=== PATIENT | male | born 1960 | race African-American/Black ===

== ENCOUNTER 2020-10-27 06:18 | Emergency (ER) | payer OTHER, SELFPAY ==
[2020-10-27 06:26] VITALS: BP 164/99; PULSE 124; RESP 18; TEMP 36.6; O2SAT 97
--- NOTE | 2020-10-27 07:26 | ED.DENTAL ---
HPI - Dental/Oral General Chief complaint: Dental/Oral Stated complaint: infected tooth Time Seen by Provider: 10/27/20 07:06 Source: patient Mode of arrival: ambulatory Limitations: no limitations History of Present Illness HPI Narrative: Patient is a 60-year-old male complaining of right facial swelling that started yesterday, seeing his dentist was diagnosed with a dental abscess was given amoxicillin but was told if the swelling increased to go to the emergency room. Patient denies any lip or tongue or throat swelling. Patient denies dysphagia. Patient denies fever or chills. Patient denies any chest pain shortness of breath. Related Data Allergies Allergy/AdvReac Type Severity Reaction Status Date / Time No Known Allergies Allergy Verified 10/27/20 06:50 Review of Systems Review of Systems: All systems reviewed & are unremarkable except as noted in HPI and below Constitutional: Constitutional: Denies body ache(s), Denies chills, Denies excessive sweating, Denies fatigue, Denies fever(s), Denies headache(s), Denies lethargy, Denies malaise, Denies weakness and Denies weight loss Eyes: Eyes: Denies blurry vision, Denies change in vision and Denies loss of vision ENT: Denies dizziness, Denies ear discharge, Denies headache(s), Denies lip swelling, Denies epistaxis, Denies nasal congestion, Denies neck pain, Denies throat swelling and Denies tongue swelling Cardiovascular: Cardiovascular: Denies chest pain, Denies chest pain at rest, Denies chest pain with activity, Denies diaphoresis, Denies rapid heart rate, Denies edema, Denies irregular heart rhythm, Denies lightheadedness, Denies palpitations, Denies dyspnea and Denies dyspnea on exertion Respiratory: Respiratory: Denies chest congestion, Denies cough, Denies hemoptysis, Denies dyspnea and Denies dyspnea on exertion Gastrointestinal: Gastrointestinal: Denies abdominal pain, Denies melena, Denies hematochezia, Denies diarrhea, Denies nausea, Denies vomiting and Denies hematemesis Musculoskeletal: Musculoskeletal: Denies abnormal gait, Denies deformity, Denies joint swelling, Denies limited range of motion, Denies neck pain and Denies numbness Neurologic: Denies Abnormal speech present, Denies abnormal gait, Denies confusion, Denies dizziness, Denies headache(s), Denies focal weakness, Denies loss of vision, Denies numbness, Denies Other visual disturbances, Denies Sensory deficit (Neuro) and Denies weakness Psychiatric: Psychiatric: Denies confusion, Denies depression, Denies auditory hallucinations, Denies homicidal ideation and Denies suicidal ideation Endocrine: Endocrine: Denies cold intolerance, Denies excessive sweating, Denies fatigue, Denies heat intolerance and Denies palpitations Hematologic/Lymphatic: Hematologic/Lymphatic: Denies easy bleeding and Denies easy bruising Allergic/Immunologic: Allergic/Immunologic: Denies lip swelling, Denies throat swelling and Denies tongue swelling PMFSH Social History Social History Gender identity (if verbalized by the patient): Male Exam Const: General: cooperative, healthy appearing, comfortable, no acute distress, well developed, alert and awake; No confusion Orientation/consciousness: oriented to person, oriented to place, oriented to time, patient oriented x3 and No confusion Limitations: no limitations HENMT: Head: normocephalic and atraumatic Ears: hearing grossly normal bilaterally, TM normal on the right and TM normal on the left General nose exam: Normal external nose present, Normal nares present and No nasal discharge present Face and sinus: sinus tenderness Mouth: Yes Normal oral and palatal mucosa present, Yes lip normal, Yes tongue normal and Yes oropharynx normal Throat: posterior oropharynx normal, tonsils normal and uvula midline Other: Right facial swelling, erythema, nonfluctuant Eyes: General: appearance normal, both eyes and all related structures Pupils: Equal, round and reactive pupils pres
[2020-10-27] MEDS: CLINDAMYCIN 600 MG/NS 50 ML 600 MG/50 ML PIGGYBACK 100 MG IVPB (07:45)
== END 2020-10-27 08:24 | disposition home or self-care (01) ==
PROVIDERS: Emergency Provider Emergency Medicine; PCP Family Medicine Adolescent Medicine
DX: K04.7 Periapical abscess without sinus (principal)
CPT/HCPCS: 96365; 99284

== ENCOUNTER 2020-12-05 07:51 | Outpatient (CLI) | payer OTHER, SELFPAY ==
[2020-12-05 08:35] LABS: Alanine Aminotransferase 16 U/L (4-50); Albumin Level 4.2 g/dL (3.5-5.1); Alkaline Phosphatase 106 U/L (38-126); Anion Gap 6 mmol/L (8-16); Aspartate Amino Transferase 18 U/L (17-59); Bilirubin,Total 0.6 mg/dL (0.2-1.3); Blood Urea Nitrogen 16 mg/dL (9-20); Calcium 10.1 mg/dL (8.4-10.2); Carbon Dioxide 32 mmol/L (22-30); Chloride 100 mmol/L (98-107); Cholesterol 246 mg/dL (0-200); Estimated Glomerular Filt Rate > 60; Glucose 284 mg/dL (75-110); HDL Direct 46 mg/dL; Potassium 3.6 mmol/L (3.4-5.0); Sodium 138 mmol/L (137-145); Triglycerides 119 mg/dL (<150)
[2020-12-05 08:45] LABS: LDL Cholesterol Direct 168 mg/dL
[2020-12-05 09:04] LABS: Prostate Specific Antigen 1.5 ng/mL (< OR = 4.0)
[2020-12-07 10:57] LABS: Hemoglobin A1C 13.3 % (<5.7)
== END 2020-12-05 07:52 | disposition home or self-care (01) ==
LOC: ANHLAB 07:52
PROVIDERS: PCP Family Medicine Adolescent Medicine; Visit Provider Family Medicine Adolescent Medicine
DX: E11.9 Type 2 diabetes mellitus without complications (principal); I10 Essential (primary) hypertension; Z12.5 Encounter for screening for malignant neoplasm of prostate; Z13.220 Encounter for screening for lipoid disorders
CPT/HCPCS: 36415; 80053; 80061; 83036; 84153; G0103

== ENCOUNTER 2021-06-17 12:59 | Inpatient (IN) | payer OTHER, SELFPAY ==
[2021-06-17] VITALS (13 sets, daily range): BP systolic 105–147; BP diastolic 60–88; PULSE 90–116; RESP 16–25; TEMP 36.1–36.8; O2SAT 94–100; BMI 29.2
--- NOTE | ~2021-06-17 | CT_ITS ---
EXAMINATION: CT abdomen pelvis w con DATE: 06/17/2021 15:00 INDICATION: Lower abdominal pain TECHNIQUE: Computed tomography (CT) of the abdomen and pelvis was performed with 100 mL Omnipaque-350 intravenous contrast. Automated exposure control and iterative reconstruction technique were employe d. The dose-length product was 700.10 mGy-cm. COMPARISON: None FINDINGS: Lung bases are clear. Heart size is normal. No pericardial or pleural effusion. Focal hepatic steatos is at the ligamentum teres. Gallbladder, spleen, pancreas and bilateral adrenal glands are normal. Th ere is an irregular fluid collection situated amongst small bowel loops in the central pelvis and ext ending laterally to abut the tip of the cecum in the expected location of the appendix which is suspi cious for ruptured appendicitis. The 2 largest pockets of the fluid collection measures approximately 4 cm in maximal dimensions. The fluid collection does not yet appear organized with no contiguous we ll-defined enhancing peripheral wall. There are few scattered diverticula along the colon without adj acent inflammatory change to suggest diverticulitis. No bowel obstruction. Bladder is normal. Prostat omegaly. No free intraperineal gas. Small fat-containing umbilical hernia. Mild scattered degenerativ e skeletal changes in the spine and at both hips. IMPRESSION: 1. Irregular fluid collection in the central pelvis which extends to contact the tip of the cecum sug gesting a likely ruptured appendicitis. The fluid collection at this time has not yet organized into a well-defined abscess. Reviewed, dictated and finalized at location A. IMPRESSION: 1. Irregular fluid collection in the central pelvis which extends to contact th e tip of the cecum suggesting a likely ruptured appendicitis. The fluid collect ion at this time has not yet organized into a well-defined abscess.
[2021-06-17 13:49] LABS: Basophils Percent Auto 0.2 % (0.2-1.2); Eosinophils Percent Auto 0.2 % (0-4.4); Hemoglobin 12.7 g/dL (14.0-18.0); Immature Granulocyte Absolute 0.12 K/mm3 (0.00-0.031); Immature Granulocyte Percent A 0.8 % (0-0.5); Lymphocytes Absolute Auto 2.27 K/mm3 (0.9-3.2); Lymphocytes Percent Auto 15.7 % (18.3-44.2); Mean Corpuscular HGB Conc 32.6 g/dl (32-36); Mean Corpuscular Hemoglobin 28.9 pg (26-34); Mean Corpuscular Volume 88.6 fl (80-100); Mean Platelet Volume 9.3 fl (7.4-10.4); Monocytes Absolute Auto 1.3 K/mm3 (0.1-0.6); Monocytes Percent Auto 8.9 % (2.6-8.5); Neutrophils Absolute Auto 10.7 K/mm3 (1.3-6.7); Neutrophils Percent Auto 74.2 % (45.5-73.1); Platelet Count Result 311 k/mm3 (150-375); Red Cell Distribution Width 12.6 % (11.5-14.5); White Blood Count 14.4 K/mm3 (4.5-10.0)
--- NOTE | 2021-06-17 13:53 | ED.ABDPAIN ---
HPI - Abdominal Pain General Chief Complaint: Abdominal Pain Stated Complaint: abd pain Time Seen by Provider: 06/17/21 13:18 Source: patient Mode of arrival: ambulatory Limitations: no limitations History of Present Illness HPI narrative: This is a 61 year old male who presents for evaluation of suprapubic abdominal pain. His pain started 2 days ago. His pain was intermittent and it became constant last night. He was unable to sleep due to his severe pain. HE denies nausea, vomiting, diarrhea, constipation or fever. He also denies dysuria or hematuria. He thinks he had similar pain several months ago when he had a dental infection. He denies history diverticulitis. MD elicited complaint: abdominal pain Quality: cramping Migration to: no migration Exacerbating factors: movement Relieving factors: nothing Related Data Home Medications Medication Instructions Recorded Confirmed glimepiride 4 mg PO DAILY 06/17/21 06/17/21 indapamide 2.5 mg PO DAILY 06/17/21 06/17/21 lisinopril 40 mg PO DAILY 06/17/21 06/17/21 mirabegron [Myrbetriq] 50 mg PO DAILY 06/17/21 06/17/21 pantoprazole 40 mg PO DAILY 06/17/21 06/17/21 pioglitazone 30 mg PO DAILY 06/17/21 06/17/21 Allergies Allergy/AdvReac Type Severity Reaction Status Date / Time No Known Allergies Allergy Verified 06/17/21 17:11 Review of Systems Review of Systems: All systems reviewed & are unremarkable except as noted in HPI and below PMFSH Past Medical History Medical History DM2 (diabetes mellitus, type 2) HTN (hypertension) Surgical History Surgical History No history of previous surgery Family History Family History (Updated 06/17/21 @ 17:55 by Kam Fan DO) Sibling Diabetes mellitus Hypertension Social History Social History (Updated 06/17/21 @ 17:56 by Kam Fan DO) Smoking status: Never smoker Alcohol intake: never Substance use: never Living arrangements: with roommate(s) Gender identity (if verbalized by the patient): Male Exam Const: General: no acute distress and alert Orientation/consciousness: patient oriented x3 Eyes: EOM: EOMs intact bilaterally Resp: Effort & Inspection: normal respiratory effort and no retractions Auscultation: clear to auscultation bilaterally Cardio: Rate: regular rate Rhythm: regular rhythm Heart sounds: no murmurs GI: GI Palp: Yes Soft to palpation, Yes Tenderness to palpation present (GI) (suprapubic with voluntary guarding), Yes Guarding due to palpation present (GI) and No Rigid due to palpation Auscultation: normal bowel sounds Skin: General skin exam: normal color Rashes: no rashes Neuro: General: patient oriented x3, moves all extremities and CN's II-XI intact bilaterally Psych: Mental Status: mental status grossly normal Affect: normal affect Course Reevaluation(s) Reevaluation #1: Patient states he feels better and he has no pain. Dr. Fan states he will take patient to OR Date: 06/17/21 Time: 16:02 Vital Signs Vital signs: Vital Signs Temperature 97 F L 06/17/21 13:01 Pulse Rate 116 H 06/17/21 13:01 Respiratory Rate 17 06/17/21 13:01 Blood Pressure 135/86 06/17/21 13:01 Pulse Oximetry 99 06/17/21 13:01 Temperature 97.7 F 06/17/21 17:20 Pulse Rate 109 H 06/17/21 17:20 Respiratory Rate 16 06/17/21 17:20 Blood Pressure 147/84 H 06/17/21 17:20 Pulse Oximetry 98 06/17/21 17:20 MDM - Abdominal Pain Lab Data Result diagrams: 06/17/21 13:31 06/17/21 13:31 Labs: Lab Results 06/17/21 06/17/21 06/17/21 Range/Units 13:31 13:31 14:05 WBC 14.4 H (4.5-10.0) K/mm3 RBC 4.40 L (4.6-6.20) M/mm3 Hgb 12.7 L (14.0-18.0) g/dL Hct 39.0 L (42.0-52.0) % MCV 88.6 (80-100) fl MCH 28.9 (26-34) pg MCHC 32.6 (32-36) g/dl RDW 12.6 (
[2021-06-17 13:58] LABS: Alanine Aminotransferase 38 U/L (4-50); Albumin Level 4.2 g/dL (3.5-5.1); Alkaline Phosphatase 193 U/L (38-126); Anion Gap 15 mmol/L (8-16); Aspartate Amino Transferase 29 U/L (17-59); Bilirubin,Total 0.7 mg/dL (0.2-1.3); Blood Urea Nitrogen 22 mg/dL (9-20); Calcium 10.2 mg/dL (8.4-10.2); Carbon Dioxide 30 mmol/L (22-30); Chloride 92 mmol/L (98-107); Estimated CRCL calculation 70 ml/min; Estimated Glomerular Filt Rate > 60; Glucose 138 mg/dL (65-110); Lipase 46 U/L (23-300); Potassium 3.4 mmol/L (3.4-5.0); Sodium 137 mmol/L (137-145)
[2021-06-17 14:18] LABS: Add Urine Microscopic? YES; Appearance Urine Clear (Clear); Bilirubin Urine Negative (Negative); Blood Urine 1+ (Negative); Color Urine Yellow (Yellow); Glucose Urine UA Negative (Negative); Ketones Urine 1+ mg/dL (Negative); Leukocyte Esterase Ur Negative LEU/UL (Negative); Mucus Urine Rare /lpf; Nitrate Urine Negative (Negative); Protein Urine 1+ mg/dL (Negative); RBC Urine 0-2 /hpf (0-2); Specific Grav Ur 1.023 (1.001-1.035)
[2021-06-17 14:21] LABS: Lactic Acid Reflex 1.3 mmol/L (0.7-2.1)
[2021-06-17] MEDS: LACTATED RINGERS 1,000 ML 999 ML IV CONT (14:46)
--- NOTE | 2021-06-17 16:57 | PM.IMHP ---
H&P: HPI History of Present Illness Date/Time: 06/17/21 16:57 Chief Complaint: RLQ pain Narrative: Zeb is a 61 yo man who presents to the ED today with abdominal pain that started yesterday. He works in the [employer] department here at [facility]. He states that pain became more severe overnight and was not improving this AM, therefore he came to the ED. He had a more minor similar episode like this 7 months ago, but this resolved on its own. Back then, he thought it was related to recently taking antibiotics for a dental infection. He denies fevers or change in bowel habits. CT in the ED showed evidence of likely acute perforated appendicitis without organized abscess. Pain is currently very minimal after receiving pain meds in the ED. Review of Systems Review of Systems: All systems reviewed & are unremarkable except as noted in HPI and below Eyes: Eyes: Denies change in vision ENT: Denies hearing loss, Denies neck pain and Denies sore throat Cardiovascular: Cardiovascular: Denies chest pain and Denies dyspnea Respiratory: Respiratory: Denies cough, Denies dyspnea and Denies wheezing Gastrointestinal: Gastrointestinal: Reports as per HPI Genitourinary: Genitourinary: Denies hematuria and Denies dysuria Musculoskeletal: Musculoskeletal: Denies arthralgias, Denies joint swelling and Denies neck pain Allergic/Immunologic: Allergic/Immunologic: Denies wheezing PMFSH Past Medical History Medical History DM2 (diabetes mellitus, type 2) HTN (hypertension) Surgical History Surgical History No history of previous surgery Family History Family History (Updated 06/17/21 @ 17:55 by Kam Fan DO) Sibling Diabetes mellitus Hypertension Social History Social History (Updated 06/17/21 @ 17:56 by Kam Fan DO) Smoking status: Never smoker Alcohol intake: never Substance use: never Living arrangements: with roommate(s) Gender identity (if verbalized by the patient): Male Meds Home Medications and Allergies Home Medications Medication Instructions Recorded Confirmed Type glimepiride 4 mg PO DAILY 06/17/21 06/17/21 History indapamide 2.5 mg PO DAILY 06/17/21 06/17/21 History lisinopril 40 mg PO DAILY 06/17/21 06/17/21 History mirabegron [Myrbetriq] 50 mg PO DAILY 06/17/21 06/17/21 History pantoprazole 40 mg PO DAILY 06/17/21 06/17/21 History pioglitazone 30 mg PO DAILY 06/17/21 06/17/21 History Allergies Allergy/AdvReac Type Severity Reaction Status Date / Time No Known Allergies Allergy Verified 06/17/21 17:11 Vital Signs Vital Signs - 24 hr 06/17/21 13:01 Temperature 36.1 C L Pulse Rate 116 H Respiratory Rate 17 Blood Pressure 135/86 Pulse Oximetry 99 Exam Const: General: alert; No acute distress Orientation/consciousness: patient oriented x3 Limitations: no limitations HENMT: Head: normocephalic and atraumatic Ears: hearing grossly normal bilaterally General nose exam: Normal external nose present and Normal nares present Mouth: Yes Normal oral and palatal mucosa present and Yes moist mucous membranes Eyes: General: appearance normal, both eyes and all related structures Conjunctivae: conjunctivae normal Sclera: sclerae normal Pupils: Equal, round and reactive pupils present EOM: EOMs intact bilaterally Neck: Neck: normal visual inspection, full ROM, no lymphadenopathy, supple and no JVD Lymphatic: no lymphadenopathy noted Chest: Chest palpation & inspection: normal inspection of the chest Resp: Effort & Inspection: normal respiratory effort and able to speak in complete sentences Auscultation: clear to auscultation bilaterally Percussion: percussion normal Cardio: Jugular venous distension: no JVD Rate: regular rate Rhythm: regular rhythm Heart sounds: S1 normal heart sound present and S2 normal heart sound present
--- NOTE | 2021-06-17 17:07 | WPDHPUPDATE1 ---
History and Physical Update Update Date/Time: 06/17/21 17:07 History and Physical has been reviewed, including an updated exam of the patient. There are NO changes in the patient's condition. Risks, benefits, and alternatives have been discussed and questions answered. Patient agrees to proceed with procedure.
--- NOTE | 2021-06-17 17:19 | WPDANESEPPF ---
Anes - Initial Pre Proc Eval Procedure: Operation Date: 06/17/21 17:30 Proposed Procedures p Laparoscopic Appendectomy, Possible Open - Kam Fan DO Date/Time: 06/17/21 17:19 Surgeon: Kam Fan DO Pre Op Diagnosis: abd pain Patient Data Age: 61 Gender: M Height: 1.75 m Weight: 90 kg Last Vital Signs Temp 36.1 C L 06/17/21 13:01 Pulse 116 H 06/17/21 13:01 Resp 17 06/17/21 13:01 BP 135/86 06/17/21 13:01 Pulse Ox 99 06/17/21 13:01 Allergies Allergy/AdvReac Type Severity Reaction Status Date / Time No Known Allergies Allergy Verified 06/17/21 17:11 Home Medications Medication Instructions Recorded Confirmed Type glimepiride 4 mg PO DAILY 06/17/21 06/17/21 History indapamide 2.5 mg PO DAILY 06/17/21 06/17/21 History lisinopril 40 mg PO DAILY 06/17/21 06/17/21 History mirabegron [Myrbetriq] 50 mg PO DAILY 06/17/21 06/17/21 History pantoprazole 40 mg PO DAILY 06/17/21 06/17/21 History pioglitazone 30 mg PO DAILY 06/17/21 06/17/21 History Laboratory Tests 06/17/21 06/17/21 06/17/21 13:31 13:31 14:05 WBC 14.4 K/mm3 H K/mm3 (4.5-10.0) RBC 4.40 M/mm3 L M/mm3 (4.6-6.20) Hgb 12.7 g/dL L g/dL (14.0-18.0) Hct 39.0 % L % (42.0-52.0) MCV 88.6 fl fl (80-100) MCH 28.9 pg pg (26-34) MCHC 32.6 g/dl g/dl (32-36) RDW 12.6 % % (11.5-14.5) Plt Count 311 k/mm3 k/mm3 (150-375) MPV 9.3 fl fl (7.4-10.4) Immature Gran % (Auto) 0.8 % H % (0-0.5) Neut % (Auto) 74.2 % H % (45.5-73.1) Lymph % (Auto) 15.7 % L % (18.3-44.2) [place] % (Auto) 8.9 % H % (2.6-8.5) Eos % (Auto) 0.2 % % (0-4.4) Baso % (Auto) 0.2 % % (0.2-1.2) Lymph # (Auto) 2.27 K/mm3 K/mm3 (0.9-3.2) [place] # (Auto) 1.3 K/mm3 H K/mm3 (0.1-0.6) Eos # (Auto) 0.0 K/mm3 K/mm3 (0-0.3) Baso # (Auto) 0.0 K/mm3 K/mm3 (0.0-0.1) Abs Immat Gran (auto) 0.12 K/mm3 H K/mm3 (0.00-0.031) Absolute Neuts (auto) 10.7 K/mm3 H K/mm3 (1.3-6.7) Absolute Nucleated RBC 0.0 K/mm3 K/mm3 (0.0-0.012) Nucleated RBC % 0.0 % % (0.0-0.2) Sodium 137 mmol/L mmol/L (137-145) Potassium 3.4 mmol/L mmol/L (3.4-5.0) Chloride 92 mmol/L L mmol/L (98-107) Carbon Dioxide 30 mmol/L mmol/L (22-30) Anion Gap 15 mmol/L mmol/L (8-16) BUN 22 mg/dL H mg/dL (9-20) Creatinine 1.00 mg/dL mg/dL (0.7-1.3) Estim Creat Clear Calc 70 ml/min ml/min Estimated GFR > 60 (59 - ) Glucose 138 mg/dL H mg/dL (65-110) Lactic Acid Calcium 10.2 mg/dL mg/dL (8.4-10.2) Total Bilirubin 0.7 mg/dL mg/dL (0.2-1.3) AST 29 U/L U/L (17-59) ALT 38 U/L U/L (4-50) Alkaline Phosphatase 193 U/L H U/L (38-126) Total Protein 8.0 g/dL g/dL (6.3-8.2) Albumin 4.2 g/dL g/dL (3.5-5.1) Lipase 46 U/L U/L (23-300) Urine Color Yellow (Yellow) Urine Appearance Clear (Clear) Urine pH 5.0 (5.0-9.0) Ur Specific [place] 1.023 (1.001-1.035) Urine Protein 1+ mg/dL H mg/dL (Negative) Urine Glucose (UA) Negative mg/dL mg/dL (Negative) Urine Ketones 1+ mg/dL H mg/dL (Negative) Ur Blood (Man) 1+ H (Negative) Urine Nitrate Negative (Negative) Urine Bilirubin Negative (Negative) Urine Urobilinogen 2.0 mg/dL H mg/dL (<2.0) Leukocyte Esterase Rfl Negative RHONDA/UL RHONDA/UL (Negative) Urine RBC 0-2 /hpf /hpf (0-2) Urine WBC 4-6 /hpf H /hpf Urine Mucus Rare /lpf /lpf 06/17/21 14:05 WBC RBC Hgb Hct MCV MCH MCHC R
[2021-06-17 17:39] LABS: Glucose Point of Care 129 mg/dl (65-105)
[2021-06-17] MEDS: LACTATED RINGERS 1,000 ML 30 ML IV CONT ×2 (17:49→20:02)
[2021-06-17] MEDS: BUPIVACAINE/EPINEPHRINE 0.5% 30 ML VIAL INFILTRATE (18:28)
--- NOTE | 2021-06-17 20:00 | W.PM.PROC2 ---
Procedure Note - Detailed Date of Procedure 06/17/21 Pre-op Diagnosis Acute perforated appendicitis Post-op Diagnosis same (Acute perforated appendicitis, intraabdominal abscess) Procedure Performed 1. Laparoscopic appendectomy 2. Laparoscopic drainage of intraabdominal abscess Surgeon Kam Fan, DO Anesthesia general and local (0.5% bupivicaine with epinephrine) Indications This is a 61-year-old man who presented to the emergency department today with lower abdominal pain that started yesterday. His pain progressed overnight and he was having more severe pain this morning and therefore presented to the ED. He did have a more minor episode like this about 7 months ago but this resolved without any further treatment or investigation. In the emergency department he was noted to have an elevated white blood count and CT showed evidence of probable perforated appendicitis without definite organized abscess. Discussions were made with the patient about treatment options and decision was made to proceed with urgent laparoscopic appendectomy, possible open. Findings Laparoscopic appendectomy was performed. There was an intra-abdominal abscess located between a loop of the terminal ileum and the perforated appendix. There was also another abscess between the mesoappendix and mesentery of the terminal ileum. The appendix was heavily adherent to the right lower quadrant including adhesions to the sigmoid colon, right pelvic wall, cecum, and terminal ileum. The appendix was barely recognizable as there was extensive amount of friable tissue within the length of what appeared to be the appendix. The appendix also essentially peeled away from the cecum at the base. There was induration of the cecum which I felt would have been difficult to come across with a stapler, therefore I chose to over sew the location of the base of the appendix with 2 0 silk imbricating sutures. The mesoappendix was taken down using an endoGIA 45 mm blue load stapler. The specimen was removed and sent to the lab for pathology. I then also irrigated the abdomen with about a liter of fluid and placed a 19 round Alejandro drain within the right lower quadrant. Carefully inspecting the remainder of the abdomen, there did not appear to be evidence of any small bowel or colon pathology and the cecum appeared healthy and viable. Description of Procedure Procedure as well as risks, benefits, and alternatives were explained to the patient. The patient agreed to proceed. Written consent was obtained and placed in chart prior to procedure. The patient was brought back to surgical suite. He was placed supine on operating table. Time-out was done to confirm the patient and procedure. The patient was then intubated by the Anesthesia Department. his abdomen was prepped and draped in sterile fashion using chlorhexidine prep. A 5 mm incision was made just to the left of the patient's umbilicus and a 5 mm Optiview trocar was advanced through the abdominal layers under direct visualization. Once inside the peritoneal cavity, carbon dioxide insufflation was used to create a pneumoperitoneum. The camera was inserted and the abdomen was inspected. No immediate abnormalities were identified. The patient was then placed in slight Trendelenburg position and rotated to the left. A 5 mm incision was made in the suprapubic region in midline and a 5 mm trocar was inserted under direct visualization. A 12 mm incision was made in the left lower quadrant and a 12 mm trocar was inserted under direct visualization. The right lower quadrant was carefully inspected. The cecum was identified and then this was traced back to the appendix. The terminal ileum was carefully peeled away from what appeared to be the remnant of the ruptured appendix. There was an abscess between the appendix and the ileum which was drained using a suction script worker. There was also another abscess as I dissected deeper between the mesoapp
[2021-06-17 20:18] LABS: Glucose Point of Care 161 mg/dl (65-105)
[2021-06-17] MEDS: ONDANSETRON INJ 4 MG/2 ML VIAL IV PUSH (20:37)
[2021-06-17] MEDS: fentaNYL CITRATE INJ (*CRX) 100 MCG/2 ML VIAL 25 MCG IV PUSH ×2 (20:56→20:59)
--- NOTE | 2021-06-17 21:12 | SUR.PHASEI ---
[id number] sbar faxed floor notified
[2021-06-17] MEDS: MORPHINE SULFATE (*CRX) 2 MG/ML INJ IV PUSH (22:25)
[2021-06-17] MEDS: LACTATED RINGERS 1,000 ML 100 ML IV CONT (22:27)
--- NOTE | 2021-06-17 22:59 | PC.NURSE ---
This patient, Zeb Neville , was received from [[facility] ] on 06/17/21 at 2154. Patient/family oriented to unit policies and routines
[2021-06-18 04:00] VITALS: BP 147/87; PULSE 101; RESP 18; TEMP 35.8; O2SAT 100
--- NOTE | 2021-06-18 04:19 | PC.NURSE ---
called respiratory to obtain IS and provide teaching
[2021-06-18] MEDS: MORPHINE SULFATE (*CRX) 2 MG/ML INJ IV PUSH (04:31)
[2021-06-18 06:05] LABS: Hematocrit 35.7 % (42.0-52.0); Hemoglobin 11.3 g/dL (14.0-18.0); Mean Corpuscular HGB Conc 31.7 g/dl (32-36); Mean Corpuscular Hemoglobin 28.6 pg (26-34); Mean Corpuscular Volume 90.4 fl (80-100); Mean Platelet Volume 9.1 fl (7.4-10.4); Platelet Count Result 278 k/mm3 (150-375); Red Blood Count 3.95 M/mm3 (4.6-6.20); Red Cell Distribution Width 12.7 % (11.5-14.5); White Blood Count 15.5 K/mm3 (4.5-10.0)
[2021-06-18 06:22] LABS: Anion Gap 11 mmol/L (8-16); Blood Urea Nitrogen 19 mg/dL (9-20); Calcium 8.9 mg/dL (8.4-10.2); Carbon Dioxide 29 mmol/L (22-30); Chloride 96 mmol/L (98-107); Estimated CRCL calculation 64 ml/min; Estimated Glomerular Filt Rate > 60; Glucose 161 mg/dL (65-110); Potassium 3.6 mmol/L (3.4-5.0); Sodium 136 mmol/L (137-145)
[2021-06-18 06:50] LABS: Glucose Point of Care 153 mg/dl (65-105)
[2021-06-18 07:36] VITALS: BP 125/79; PULSE 98; RESP 20; TEMP 36.1; O2SAT 99
--- NOTE | 2021-06-18 08:10 | PM.PNGS ---
Progress Note: A&P Assessment and Plan (1) Acute perforated appendicitis: Code(s): K35.32 - Acute appendicitis with perforation and localized peritonitis, without abscess Status: Acute Assessment and Plan: Continue clear liquids today Increase activity Continue Zosyn, monitor DIANE output (2) DM2 (diabetes mellitus, type 2): Qualifiers: Diabetes mellitus senior care insulin use: without senior care use Diabetes mellitus complication status: without complication Qualified Code(s): E11.9 - Type 2 diabetes mellitus without complications Code(s): E11.9 - Type 2 diabetes mellitus without complications Status: Acute Assessment and Plan: On pioglitazone and SSI currently Slowly re-introduce oral meds once diet advanced (3) HTN (hypertension): Qualifiers: Hypertension type: primary hypertension Qualified Code(s): I10 - Essential (primary) hypertension Code(s): I10 - Essential (primary) hypertension Status: Acute Assessment and Plan: BP remaining stable and renal function looks good Will restart Lisinopril Subjective Subjective Date/Time Seen: 06/18/21 08:10 Interval history: Feeling much better already. Pain is 100% better per patient. Tolerating clear liquids. No flatus or BM yet. No fevers. Exam GI: Inspection: incision (intact with glue) and other (DIANE drain with serosanguinous output) Auscultation: Hypoactive bowel sounds present Objective Data Vital Signs Vital Signs: Vital Signs - 24 hr 06/17/21 13:01 06/17/21 17:20 06/17/21 20:10 Temperature 36.1 C L 36.5 C 36.4 C Pulse Rate 116 H 109 H 90 Respiratory Rate 17 16 25 H Blood Pressure 135/86 147/84 H 105/60 Pulse Oximetry 99 98 100 06/17/21 20:25 06/17/21 20:40 06/17/21 20:55 Temperature Pulse Rate 95 100 99 Respiratory Rate 18 20 20 Blood Pressure 122/88 134/83 135/87 Pulse Oximetry 100 100 97 06/17/21 21:10 06/17/21 21:25 06/17/21 21:40 Temperature Pulse Rate 100 99 102 H Respiratory Rate 21 H 24 H 24 H Blood Pressure 136/78 137/80 139/84 Pulse Oximetry 94 96 97 06/17/21 21:57 06/17/21 22:13 06/17/21 22:45 Temperature 36.8 C 36.7 C 36.6 C Pulse Rate 101 H 102 H 103 H Respiratory Rate 18 18 18 Blood Pressure 132/80 138/84 131/73 Pulse Oximetry 97 99 95 06/17/21 23:53 06/18/21 04:00 06/18/21 07:36 Temperature 36.7 C 35.8 C L 36.1 C L Pulse Rate 99 101 H 98 Respiratory Rate 16 18 20 Blood Pressure 131/74 147/87 H 125/79 Pulse Oximetry 96 100 99 Intake/Output Intake/Output: Intake & Output 06/15/21 06/16/21 06/17/21 06/18/21 23:59 23:59 23:59 23:59 Intake Total 2750 490 Output Total 450 315 Balance 2300 175 Meds/Results Medications: Active Medications Generic Name Dose Route Start Last Admin Trade Name Freq PRN Reason Stop Dose Admin Dextrose 12.5 gm 06/17/21 21:46 Dextrose 50% 25 Gm/50 Ml Syringe IV PUSH PRN PRN Hypoglycemia Protocol Enoxaparin Sodium 40 mg 06/18/21 09:00 Enoxaparin 40 Mg/0.4 Ml Syringe SUB-Q DAILY KIMBERLY Glucagon 1 mg 06/17/21 21:46 Glucagon For Inj 1 Mg Vial IM PRN PRN Hypoglycemia Protocol Glucose 15 gm 06/17/21 21:46 Glucose Oral Gel 15 Gm Of Glucse In 37.5 Gm Tube PO PRN PRN Hypoglycemia Protocol Lactated Ringer's 1,000 mls @ 100 mls/hr 06/17/21 21:46 06/17/21 22:27 Lr - Lactated Ringers Iv IV CONT 100 mls/hr .Q10H KIMBERLY Administration Acetaminophen 1,000 mg in 100 mls @ 400 mls/hr 06/18/21 00:00 06/18/21 06:17 Ofirmev 1,000 Mg Ivpb IVPB 06/18/21 23:01 Infused Q6HR KIMBERLY Infusion Piperacillin/Tazobactam/Dextrose 3.375 gm in 50 mls @ 100 mls/hr 06/17/21 22:00 06/18/21 05:10 Zosyn 3.375 Gm/D5w 50ml Pm IVPB Infused Q6H KIMBERLY Infusion Dextrose 1,000 mls @ 100 mls/hr 06/17/21 21:46 Dextrose 5% 1,000 Ml IVPB PRN PRN Hypoglycemia Protocol Insulin Aspart 3 - 6 units 06/18/21
--- NOTE | 2021-06-18 08:17 | WPDANESPN ---
Anes - Prog Note Post-Op Date/Time: 06/18/21 08:17 Cardiovascular status: normal Respiratory status: normal Airway patency: baseline Mental status: baseline Post-Op hydration status: normal Vital Signs: Last Vital Signs Temp 36.1 C L 06/18/21 07:36 Pulse 98 06/18/21 07:36 Resp 20 06/18/21 07:36 BP 125/79 06/18/21 07:36 Pulse Ox 99 06/18/21 07:36 Pain Score (VAS): 0 I/O: Intake & Output 06/17/21 06/18/21 06/18/21 23:59 07:59 15:59 Intake Total 1650 490 Output Total 450 315 Balance 1200 175 Laboratory Tests 06/18/21 05:57 06/18/21 05:57 06/17/21 06/17/21 06/17/21 13:31 13:31 14:05 WBC 14.4 H RBC 4.40 L Hgb 12.7 L Hct 39.0 L MCV 88.6 MCH 28.9 MCHC 32.6 RDW 12.6 Plt Count 311 MPV 9.3 Immature Gran % (Auto) 0.8 H Neut % (Auto) 74.2 H Lymph % (Auto) 15.7 L [place] % (Auto) 8.9 H Eos % (Auto) 0.2 Baso % (Auto) 0.2 Lymph # (Auto) 2.27 [place] # (Auto) 1.3 H Eos # (Auto) 0.0 Baso # (Auto) 0.0 Abs Immat Gran (auto) 0.12 H Absolute Neuts (auto) 10.7 H Absolute Nucleated RBC 0.0 Nucleated RBC % 0.0 Sodium 137 Potassium 3.4 Chloride 92 L Carbon Dioxide 30 Anion Gap 15 BUN 22 H Creatinine 1.00 Estim Creat Clear Calc 70 Estimated GFR > 60 Glucose 138 H POC Capillary Glucose Lactic Acid Calcium 10.2 Total Bilirubin 0.7 AST 29 ALT 38 Alkaline Phosphatase 193 H Total Protein 8.0 Albumin 4.2 Lipase 46 Urine Color Yellow Urine Appearance Clear Urine pH 5.0 Ur Specific Anita 1.023 Urine Protein 1+ H Urine Glucose (UA) Negative Urine Ketones 1+ H Ur Blood (Man) 1+ H Urine Nitrate Negative Urine Bilirubin Negative Urine Urobilinogen 2.0 H Leukocyte Esterase Rfl Negative Urine RBC 0-2 Urine WBC 4-6 H Urine Mucus Rare 06/17/21 06/17/21 06/17/21 14:05 17:36 20:08 WBC RBC Hgb Hct MCV MCH MCHC RDW Plt Count MPV Immature Gran % (Auto) Neut % (Auto) Lymph % (Auto) [place] % (Auto) Eos % (Auto) Baso % (Auto) Lymph # (Auto) [place] # (Auto) Eos # (Auto) Baso # (Auto) Abs Immat Gran (auto) Absolute Neuts (auto) Absolute Nucleated RBC Nucleated RBC % Sodium Potassium Chloride Carbon Dioxide Anion Gap BUN Creatinine Estim Creat Clear Calc Estimated GFR Glucose POC Capillary Glucose 129 H 161 H Lactic Acid 1.3 Calcium Total Bilirubin AST ALT Alkaline Phosphatase Total Protein Albumin Lipase Urine Color Urine Appearance Urine pH Ur Specific Anita Urine Protein Urine Glucose (UA) Urine Ketones Ur Blood (Man) Urine Nitrate Urine Bilirubin Urine Urobilinogen Leukocyte Esterase Rfl Urine RBC Urine WBC Urine Mucus 06/18/21 06/18/21 06/18/21 05:57 05:57 06:48 WBC 15.5 H RBC 3.95 L Hgb 11.3 L Hct 35.7 L MCV 90.4 MCH 28.6 MCHC 31.7 L RDW 12.7 Plt Count 278 MPV 9.1 Immature Gran % (Auto) Neut % (Auto) Lymph % (Auto) [place] % (Auto) Eos % (Auto) Baso % (Auto) Lymph # (Auto) [place] # (Auto) Eos # (Auto) Baso # (Auto) Abs Immat Gran (auto) Absolute Neuts (auto) Absolute Nucleated RBC Nucleated RBC % Sodium 136 L Potassium 3.6 Chloride 96 L Carbon Dioxide 29 Anion Gap 11 BUN 19 Creatinine 1.10 Estim Creat Clear Calc 64 Estimated GFR > 60 Glucose 161 H POC Capillary Glucose 153 H Lactic Acid Calcium 8.9 Total Bilirubin AST ALT Alkaline Phosphatase Total Protein Albumin Lipase Urine Color Urine Appearance Urine pH Ur Specific Anita Urine Protein Urine Glucose (UA) Urine Ketones Ur Blood (Man) Urine Nitrate Urine Bilirubin
[2021-06-18] MEDS: PIOGLITAZONE HCL 30 MG TABLET PO (08:53)
[2021-06-18] MEDS: lisinopriL 20 MG TABLET 40 MG PO (08:53)
[2021-06-18] MEDS: PANTOPRAZOLE 40 MG TABLET PO (08:53)
[2021-06-18] MEDS: ENOXAPARIN 40 MG/0.4 ML SYRINGE SUB-Q (08:53)
[2021-06-18] MEDS: LACTATED RINGERS 1,000 ML 100 ML IV CONT ×2 (08:57→21:59)
--- NOTE | 2021-06-18 10:37 | PC.NURSE ---
On 06/18/21, the student, [Erika Acevedo], provided care and completed [facility] documentation on this patient. I have reviewed the student's documentation and agree with the findings.
[2021-06-18 11:37] LABS: Glucose Point of Care 179 mg/dl (65-105)
[2021-06-18 12:00] VITALS: BP 121/74; PULSE 86; RESP 18; TEMP 35.7; O2SAT 99
[2021-06-18 16:00] VITALS: BP 139/75; PULSE 98; RESP 18; TEMP 36.2; O2SAT 97
[2021-06-18 17:00] LABS: Glucose Point of Care 86 mg/dl (65-105)
[2021-06-18 19:56] VITALS: BP 132/73; PULSE 95; RESP 18; TEMP 36; O2SAT 96
[2021-06-18 21:24] LABS: Glucose Point of Care 121 mg/dl (65-105)
[2021-06-19] MEDS: MORPHINE SULFATE (*CRX) 4 MG/ML INJ IV PUSH (01:57)
[2021-06-19 05:18] LABS: Hematocrit 34.6 % (42.0-52.0); Hemoglobin 11.1 g/dL (14.0-18.0); Mean Corpuscular HGB Conc 32.1 g/dl (32-36); Mean Corpuscular Hemoglobin 28.8 pg (26-34); Mean Corpuscular Volume 89.6 fl (80-100); Mean Platelet Volume 8.9 fl (7.4-10.4); Platelet Count Result 303 k/mm3 (150-375); Red Blood Count 3.86 M/mm3 (4.6-6.20); White Blood Count 12.5 K/mm3 (4.5-10.0)
[2021-06-19 05:29] VITALS: BP 131/81; PULSE 102; RESP 18; TEMP 35.9; O2SAT 97
[2021-06-19 05:39] LABS: Anion Gap 8 mmol/L (8-16); Blood Urea Nitrogen 13 mg/dL (9-20); Calcium 8.6 mg/dL (8.4-10.2); Carbon Dioxide 31 mmol/L (22-30); Chloride 97 mmol/L (98-107); Estimated CRCL calculation 78 ml/min; Estimated Glomerular Filt Rate > 60; Glucose 130 mg/dL (65-110); Potassium 3.4 mmol/L (3.4-5.0); Sodium 136 mmol/L (137-145)
[2021-06-19] MEDS: LACTATED RINGERS 1,000 ML 50 ML IV CONT (09:10)
[2021-06-19] MEDS: MORPHINE SULFATE (*CRX) 2 MG/ML INJ IV PUSH (09:11)
--- NOTE | 2021-06-19 09:11 | PM.PNGS ---
Progress Note: A&P Assessment and Plan (1) Acute perforated appendicitis: Onset Date: ~06/17/21 Code(s): K35.32 - Acute appendicitis with perforation and localized peritonitis, without abscess Status: Acute Assessment and Plan: this was the main reason for the patient's admission. His appendix was disintegrated in the right lower quadrant with the surrounding abscess. There is a drain in this area now. He seems to be recovering well on IV antibiotics. Will advance his diet. Leave drain in place. Encouraged increased activity and incentive spirometry. (2) HTN (hypertension): Onset Date: Unknown Qualifiers: Hypertension type: primary hypertension Qualified Code(s): I10 - Essential (primary) hypertension Code(s): I10 - Essential (primary) hypertension Status: Acute Assessment and Plan: Placing patient back on usual medications is okay with surgery. (back on lisinpril). (3) DM2 (diabetes mellitus, type 2): Qualifiers: Diabetes mellitus complication status: without complication Diabetes mellitus superintendent container terminal insulin use: without superintendent container terminal use Qualified Code(s): E11.9 - Type 2 diabetes mellitus without complications Code(s): E11.9 - Type 2 diabetes mellitus without complications Status: Acute Assessment and Plan: We could resume oral antihyperglycemics. Done 06/19). Additional Plan Continue IV antibiotics Begin advancing diet Encourage activity. Subjective Subjective Date/Time Seen: 06/19/21 09:11 Post Op day: 2 ( sitting up in chair, improved) Patient reports: feels better, still having pain, flatus and no bowel movement Interval history: patient states he is feeling okay. He has been walking in the hallways. He is using his incentive spirometer. Denies nausea and is tolerating his clear liquid diet. Review of Systems Constitutional: Constitutional: Reports no additional constitutional complaints ENT: Reports other (Mucous Membranes moist.) Cardiovascular: Cardiovascular: Denies dyspnea Respiratory: Respiratory: Denies pain on inspiration and Denies dyspnea Musculoskeletal: Musculoskeletal: Reports other (No calf swelling or edema) Integumentary/Breasts: Skin/Breast: Reports system reviewed and no additional complaints, except as docu Exam Const: General: cooperative, no acute distress, alert and awake Orientation/consciousness: patient oriented x3 HENMT: Mouth: Yes moist mucous membranes Neck: Neck: normal visual inspection Chest: Chest palpation & inspection: normal inspection of the chest Resp: Effort & Inspection: normal respiratory effort Auscultation: clear to auscultation bilaterally Cardio: Jugular venous distension: no JVD Rate: regular rate Rhythm: regular rhythm GI: Inspection: distended GI Palp: Yes abdominal tenderness ( mild at incision sites), Yes Soft to palpation and No Hernia present Auscultation: normal bowel sounds Rectal Exam: deferred Other: Drain exiting suprapubic incision. No surrounding significant drainage. DIANE contains serosanguineous drainage that is not feculent. 175 cc out DIANE drain yesterday. Neuro: General: patient oriented x3 and moves all extremities Speech: normal speech Extrem: General: normal exam except as noted Psych: Mental Status: mental status grossly normal Speech and movement: Normal speech and movement present Affect: normal affect Thought content: Yes Normal thought content present Objective Data Vital Signs Vital Signs: Vital Signs - 24 hr 06/18/21 12:00 06/18/21 16:00 06/18/21 19:56 Temperature 35.7 C L 36.2 C L 36.0 C L Pulse Rate 86 98 95 Respiratory Rate 18 18 18 Blood Pressure 121/74 139/75 132/73 Pulse Oximetry 99 97 96 06/19/21 05:29 Temperature 35.9 C L Pulse Rate 102 H Respiratory Rate 18 Blood Pressure 131/81 Pulse Oximetry 97 Intake/Output Intake/Output: Intake & Output 06/16/21 06/17/21 06/18/21 06/19/21
[2021-06-19] MEDS: lisinopriL 20 MG TABLET 40 MG PO (09:15)
[2021-06-19] MEDS: PIOGLITAZONE HCL 30 MG TABLET PO (09:15)
[2021-06-19] MEDS: PANTOPRAZOLE 40 MG TABLET PO (09:15)
[2021-06-19] MEDS: ENOXAPARIN 40 MG/0.4 ML SYRINGE SUB-Q (09:15)
[2021-06-19 11:19] LABS: Glucose Point of Care 147 mg/dl (65-105)
[2021-06-19 11:50] LABS: Glucose Point of Care 147 mg/dl (65-105)
[2021-06-19 14:00] VITALS: BP 126/78; PULSE 107; RESP 20; TEMP 37.3; O2SAT 97
[2021-06-19 15:20] VITALS: TEMP 37.7
[2021-06-19 15:22] VITALS: TEMP 37.8
[2021-06-19] MEDS: ACETAMINOPHEN 500 MG TABLET 1000 MG PO (15:22)
[2021-06-19 16:20] VITALS: TEMP 37.6
[2021-06-19 17:49] LABS: Glucose Point of Care 156 mg/dl (65-105)
[2021-06-19 19:42] VITALS: BP 136/81; PULSE 108; RESP 18; TEMP 36; O2SAT 98
[2021-06-19 22:53] LABS: Glucose Point of Care 165 mg/dl (65-105)
[2021-06-20 04:50] VITALS: BP 154/90; PULSE 103; RESP 18; TEMP 37.6; O2SAT 99
[2021-06-20 08:01] LABS: Glucose Point of Care 137 mg/dl (65-105)
[2021-06-20] MEDS: PANTOPRAZOLE 40 MG TABLET PO (08:58)
[2021-06-20] MEDS: ENOXAPARIN 40 MG/0.4 ML SYRINGE SUB-Q (08:58)
[2021-06-20] MEDS: PIOGLITAZONE HCL 30 MG TABLET PO (08:58)
[2021-06-20] MEDS: lisinopriL 20 MG TABLET 40 MG PO (08:58)
[2021-06-20] MEDS: GLIMEPIRIDE 2 MG TABLET 4 MG PO (08:58)
[2021-06-20] MEDS: polyethylene glycoL 3350 17 GM POWD.PACK PO (09:37)
[2021-06-20 10:23] VITALS: TEMP 37.3
--- NOTE | 2021-06-20 10:28 | PM.DS ---
DS: Admitting Diagnosis Admitting Diagnosis acute appendicitis with perforation and localized peritonitis. DS: Discharge Diagnosis Discharge Diagnosis (1) Acute perforated appendicitis: Onset Date: ~06/17/21 Code(s): K35.32 - Acute appendicitis with perforation and localized peritonitis, without abscess Status: Acute Assessment and Plan: This was the main reason for the patient's admission. By a original CT there was not an organized abscess that could be drained by CT guidance. Therefore Dr. dwight jean-baptiste chose to proceed to surgical intervention and found a disintegrated appendix in the right lower quadrant was walled off within a phlegmon. The area was cleansed with appendix removed piecemeal and a couple of sutures placed to close the Penta seal stump. A drain was left in place. Patient had an ileus for a couple days postop but is now improving. Minimal serosanguineous drainage over the last 24 hours from the DIANE drain so that was removed today. Patient to be discharged on only Tylenol for pain. He will continue with 10 days of oral antibiotics using Augmentin and Flagyl. Prescriptions were sent to his pharmacy for this. (2) HTN (hypertension): Onset Date: Unknown Qualifiers: Hypertension type: primary hypertension Qualified Code(s): I10 - Essential (primary) hypertension Code(s): I10 - Essential (primary) hypertension Status: Acute Assessment and Plan: Patient's home meds were resumed and he had no significant problems with blood pressure during his postoperative stay. 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 Most of his blood sugars were between 102 100 and as he advanced his diet his oral meds were renewed in he continued to have reasonable blood sugars. DS: Summary Hospital Course Reason for hospitalization: Perforated appendicitis Hospital Course: The patient had an uneventful hospital course. It is described below. He is being discharged on 06/20/2021 with instructions for home care and follow-up in the office. This was the main reason for the patient's admission. By a original CT there was not an organized abscess that could be drained by CT guidance. Therefore Dr. dwight jean-baptiste chose to proceed to surgical intervention and found a disintegrated appendix in the right lower quadrant was walled off within a phlegmon. The area was cleansed with appendix removed piecemeal and a couple of sutures placed to close the Penta seal stump. A drain was left in place. Patient had an ileus for a couple days postop but is now improving. Minimal serosanguineous drainage over the last 24 hours from the DIANE drain so that was removed today. Patient to be discharged on only Tylenol for pain. He will continue with 10 days of oral antibiotics using Augmentin and Flagyl. Prescriptions were sent to his pharmacy for this. Status at Discharge Functional status at discharge: independent ambulation Overall status at discharge: patient is back to baseline Time Spent with Patient Time attestation: Total time spent providing and/or coordinating discharge services: Time spent: Less than 30 minutes Specific discharge activities: Soft diet initially at home with low-fiber and then advance as tolerated to his usual diabetic diet Resume all home meds Take prescribed antibiotics until they are gone. Follow-up with Dr. Fan in approximately 10 days in the office. Patient to call if starts running a fever consistently greater than 100 F or has increasing abdominal pain in the next few days. Exam Const: Ge
[2021-06-20] MEDS: ACETAMINOPHEN 500 MG TABLET 1000 MG PO (10:37)
[2021-06-20 11:26] LABS: Glucose Point of Care 182 mg/dl (65-105)
== END 2021-06-20 12:40 | disposition home or self-care (01) | DRG 340 ==
LOC: ANHED 16:04 → ANHSURGERY 16:50 → ANH3MED 06-18 05:07
PROVIDERS: Emergency Medicine; Admitting Provider Surgery; Emergency Provider General Practice; PCP Family Medicine Adolescent Medicine; Visit Provider Nurse Practitioner
PROC: 0DTJ4ZZ Resection of Appendix, Percutaneous Endoscopic Approach (ICD-10-PCS; CPT 44970; principal; 2021-06-17 17:30)
DX: K35.33 Acute appendicitis with perforation, localized peritonitis, and gangrene, with abscess (principal); E11.9 Type 2 diabetes mellitus without complications; I10 Essential (primary) hypertension
CPT/HCPCS: 36415; 74177; 80048; 80053; 81001; 82948; 83605; 83690; 85025; 85027; 88304; 96361; 96365; 96375; 99285; A9270; J0131; J0330; J1100; J1650; J2270; J2370; J2405; J2543; J2704; J3010; J7120; Q9967

== ENCOUNTER 2021-12-15 06:50 | Outpatient (CLI) | payer OTHER, SELFPAY ==
--- NOTE | ~2021-12-15 | XR_ITS ---
EXAMINATION: XR chest 2V EXAM DATE: 12/15/2021 07:46 INDICATION: Fatigue. Annual checkup. TECHNIQUE: Frontal and lateral projections of the chest obtained and reviewed. Comparison is made to prior examination from 12/09/2015. FINDINGS: The lungs are clear. There are no pleural effusions. The cardiomediastinal silhouette is within normal limits. There is no pneumothorax suspected. The bones and soft tissues are unremarkab le. IMPRESSION: No acute cardiopulmonary findings. Reviewed, dictated and finalized at location A. [employer]
[2021-12-15 07:57] LABS: Hematocrit 43.8 % (42.0-52.0); Hemoglobin 13.9 g/dL (14.0-18.0); Immature Platelet Fraction Pct 11.6 % (0.9-11.2); Mean Corpuscular HGB Conc 31.7 g/dl (32-36); Mean Corpuscular Hemoglobin 29.7 pg (26-34); Mean Corpuscular Volume 93.6 fl (80-100); Mean Platelet Volume 10.1 fl (7.4-10.4); Platelet Count Result 143 k/mm3 (150-375); Red Blood Count 4.68 M/mm3 (4.6-6.20); Red Cell Distribution Width 13.3 % (11.5-14.5); White Blood Count 7.4 K/mm3 (4.5-10.0)
[2021-12-15 08:34] LABS: Hemoglobin A1C 7.6 % (<5.7)
[2021-12-15 09:53] LABS: Alanine Aminotransferase 32 U/L (4-50); Albumin Level 4.4 g/dL (3.5-5.1); Alkaline Phosphatase 79 U/L (38-126); Anion Gap 5 mmol/L (8-16); Aspartate Amino Transferase 32 U/L (17-59); Bilirubin,Total 0.4 mg/dL (0.2-1.3); Blood Urea Nitrogen 25 mg/dL (9-20); Calcium 9.4 mg/dL (8.4-10.2); Carbon Dioxide 34 mmol/L (22-30); Chloride 98 mmol/L (98-107); Cholesterol 245 mg/dL (0-200); Estimated Glomerular Filt Rate > 60; Glucose 165 mg/dL (65-110); HDL Direct 58 mg/dL; Potassium 3.7 mmol/L (3.4-5.0); Sodium 137 mmol/L (137-145); Triglycerides 100 mg/dL (<150)
[2021-12-15 10:05] LABS: LDL Cholesterol Direct 145 mg/dL
[2021-12-15 10:25] LABS: Prostate Specific Antigen 1.4 ng/mL (< OR = 4.0); Thyroid Stimulating Hormone 0.922 uIU/mL (0.465-4.680)
== END 2021-12-15 06:51 | disposition home or self-care (01) ==
PROVIDERS: PCP Family Medicine Adolescent Medicine; Visit Provider Family Medicine Adolescent Medicine
DX: Z12.5 Encounter for screening for malignant neoplasm of prostate (principal); I10 Essential (primary) hypertension; E11.9 Type 2 diabetes mellitus without complications; E78.00 Pure hypercholesterolemia, unspecified; R53.83 Other fatigue
CPT/HCPCS: 36415; 71046; 80053; 80061; 83036; 84153; 84443; 85027; 85055; G0103

== ENCOUNTER 2022-05-11 06:40 | Outpatient (CLI) | payer OTHER, SELFPAY ==
[2022-05-11 07:51] LABS: Alanine Aminotransferase 36 U/L (6-50); Cholesterol 170 mg/dL (0-200); HDL Direct 59 mg/dL; Triglycerides 82 mg/dL (<150)
[2022-05-11 08:02] LABS: LDL Cholesterol Direct 77 mg/dL
== END 2022-05-11 06:41 | disposition home or self-care (01) ==
PROVIDERS: PCP Family Medicine Adolescent Medicine; Visit Provider Family Medicine Adolescent Medicine
DX: E78.5 Hyperlipidemia, unspecified (principal); Z51.81 Encounter for therapeutic drug level monitoring; Z79.899 Other long term (current) drug therapy
CPT/HCPCS: 36415; 80061; 84460

== ENCOUNTER 2022-05-31 00:06 | Day surgery (SDC) | payer OTHER, SELFPAY ==
[2022-05-11 12:02] VITALS: BMI 31.8
--- NOTE | 2022-05-30 13:09 | P.PNAN_ITS ---
Anes - Initial Pre Proc Eval Procedure: Operation Date: 05/31/22 08:00 Proposed Procedures p Screening Colonoscopy - Faraz Castro MD Date/Time: 05/30/22 13:09 Surgeon: Faraz Castro MD Pre Op Diagnosis: neoplasm screening Patient Data Age: 62 Gender: M Height: 1.75 m Weight: 98 kg Allergies Allergy/AdvReac Type Severity Reaction Status Date / Time No Known Allergies Allergy Verified 05/31/22 06:44 Home Medications Medication Instructions Recorded Confirmed Type lisinopril 40 mg tablet 40 mg PO DAILY 06/17/21 05/11/22 History pioglitazone 30 mg tablet 30 mg PO DAILY #30 tabs 12/08/21 05/11/22 Rx atorvastatin 40 mg tablet 40 mg PO DAILY #90 tabs 12/15/21 05/11/22 Rx mirabegron 50 mg tablet,extended 50 mg PO DAILY #30 tabs 01/11/22 05/11/22 Rx release 24 hr (Myrbetriq) glimepiride 4 mg tablet 4 mg PO DAILY #90 tabs 03/11/22 05/11/22 Rx amlodipine 5 mg tablet 5 mg PO DAILY #90 tabs 03/23/22 05/11/22 Rx sodium sul 1.479 gram-potas ch See Rx Instructions PO PER PKG DIR 04/25/22 05/31/22 Rx 0.188 gram-magnes sul 0.225 gram #24 tabs tablet (Sutab) indapamide 2.5 mg tablet 2.5 mg PO DAILY #30 tabs 05/09/22 05/11/22 Rx Patient hx anesthesia problems: none Family hx anesthesia problems: none Results Review: All pre-operative results and documents have been reviewed as part of the pre- operative evaluation. [facility] Past Medical History Medical History (Updated 05/30/22 @ 13:10 by El Wood MD) Acute perforated appendicitis (~06/17/21) DM2 (diabetes mellitus, type 2) HTN (hypertension) (Unknown) Pure hypercholesterolemia, unspecified Surgical History Surgical History History of laparoscopic appendectomy 05/2021 Laparoscopic appendectomy 2. Laparoscopic drainage of intraabdominal abscess Surgeon Family History Family History Sibling Diabetes mellitus Hypertension Father Acute myocardial infarction Heart disease Mother Diabetes mellitus Social History Social History (Updated 03/23/22 @ 08:22 by Qiana Smith MA) Smoking status: Never smoker Second hand tobacco smoke exposure: No Alcohol intake: current Alcohol use details: 1 drink monthly Substance use: never Substance use type: does not use Living arrangements: with roommate(s) Gender identity (if verbalized by the patient): Male Spiritual care concerns: No Agree to blood products: Yes Anes - Eval Final PreProcedure Day of Procedure 05/30/22 13:09 Patient weight: obese Heart: regular rate and rhythm Lungs: clear to auscultation Airway: Mallampati scale class II Neurological: alert and oriented Last oral intake: >/= 8 hours ASA classification: III Emergent: yes Anesthetic plan: proceed Anesthesia type and monitoring: general GIVS and standard monitoring Results Review: All pre-operative results and documents have been reviewed as part of the pre-operative evaluation. Informed Consent: The patient's anesthetic plan and its attendant risks and benefits were discussed with the patient/family/POA. Questions were solicited and answers provided to the satisfaction of the patient/family/POA.
[2022-05-31 07:05] LABS: Glucose Point of Care 199 mg/dl (65-105)
[2022-05-31] MEDS: LACTATED RINGERS 1,000 ML 150 ML IV CONT (07:08)
--- NOTE | 2022-05-31 07:49 | PM.IMHP ---
H&P: HPI History of Present Illness Date/Time: 05/31/22 07:49 Chief Complaint: Neoplasia screening. Narrative: This is a 62-year-old white male patient presents for screening colonoscopy. His current weight appetite bowel movements are normal. Patient denies abdominal pain. He has had no bleeding. Family history is noncontributory. Patient did have surgery within the last year for ruptured appendicitis. He currently is doing well with no abdominal pain and normal bowel habits. Neoplasia screening will be performed today. Review of Systems Review of Systems: Review of systems noncontributory. [facility] Past Medical History Medical History (Updated 05/31/22 @ 07:50 by Faraz Castro MD) Acute perforated appendicitis (~06/17/21) DM2 (diabetes mellitus, type 2) HTN (hypertension) (Unknown) Pure hypercholesterolemia, unspecified Surgical History Surgical History History of laparoscopic appendectomy 05/2021 Laparoscopic appendectomy 2. Laparoscopic drainage of intraabdominal abscess Surgeon Family History Family History Sibling Diabetes mellitus Hypertension Father Acute myocardial infarction Heart disease Mother Diabetes mellitus Social History Social History (Updated 03/23/22 @ 08:22 by Qiana Smith MA) Smoking status: Never smoker Second hand tobacco smoke exposure: No Alcohol intake: current Alcohol use details: 1 drink monthly Substance use: never Substance use type: does not use Living arrangements: with roommate(s) Gender identity (if verbalized by the patient): Male Spiritual care concerns: No Agree to blood products: Yes Meds Home Medications and Allergies Home Medications Medication Instructions Recorded Confirmed Type lisinopril 40 mg tablet 40 mg PO DAILY 06/17/21 05/11/22 History pioglitazone 30 mg tablet 30 mg PO DAILY #30 tabs 12/08/21 05/11/22 Rx atorvastatin 40 mg tablet 40 mg PO DAILY #90 tabs 12/15/21 05/11/22 Rx mirabegron 50 mg tablet,extended 50 mg PO DAILY #30 tabs 01/11/22 05/11/22 Rx release 24 hr (Myrbetriq) glimepiride 4 mg tablet 4 mg PO DAILY #90 tabs 03/11/22 05/11/22 Rx amlodipine 5 mg tablet 5 mg PO DAILY #90 tabs 03/23/22 05/11/22 Rx sodium sul 1.479 gram-potas ch See Rx Instructions PO PER PKG DIR 04/25/22 05/31/22 Rx 0.188 gram-magnes sul 0.225 gram #24 tabs tablet (Sutab) indapamide 2.5 mg tablet 2.5 mg PO DAILY #30 tabs 05/09/22 05/11/22 Rx Allergies Allergy/AdvReac Type Severity Reaction Status Date / Time No Known Allergies Allergy Verified 05/31/22 06:44 Exam Narrative: Physical exam reveals patient to be alert. Vital signs stable. HEENT exam is unremarkable. Patient is anicteric. Lungs are clear to auscultation and percussion. Heart is without murmur or extra sounds. Abdomen bowel sounds present soft nontender with no hepatosplenomegaly. Digital external rectal exam is normal. Assessment and Plan Assessment and plan (1) Encounter for screening colonoscopy: Code(s): Z12.11 - Encounter for screening for malignant neoplasm of colon Status: Acute Assessment and Plan: Patient presents today for screening colonoscopy. Appears to be at average risk for colon polyps. Further recommendations will be given after endoscopy.
[2022-05-31 08:09] VITALS: BP 101/63; PULSE 90; RESP 20; O2SAT 96
[2022-05-31 08:19] VITALS: BP 125/88; PULSE 89; RESP 20; O2SAT 100
[2022-05-31 08:29] VITALS: BP 118/92; PULSE 86; RESP 20; O2SAT 100
== END 2022-05-31 08:52 | disposition home or self-care (01) ==
PROVIDERS: PCP Family Medicine Adolescent Medicine; Visit Provider Internal Medicine Gastroenterology
PROC: 0DJD8ZZ Inspection of Lower Intestinal Tract, Via Natural or Artificial Opening Endoscopic (ICD-10-PCS; CPT 45378; principal; 2022-05-31 08:00)
DX: Z12.11 Encounter for screening for malignant neoplasm of colon (principal); K64.8 Other hemorrhoids; K57.30 Diverticulosis of large intestine without perforation or abscess without bleeding; I10 Essential (primary) hypertension; E11.9 Type 2 diabetes mellitus without complications; E78.00 Pure hypercholesterolemia, unspecified; Z79.84 Long term (current) use of oral hypoglycemic drugs; E66.9 Obesity, unspecified; Z68.32 Body mass index [BMI] 32.0-32.9, adult
CPT/HCPCS: 45378; 82948; J2704; J7120

== ENCOUNTER 2023-03-01 06:36 | Outpatient (CLI) | payer OTHER, SELFPAY ==
[2023-03-01 07:37] LABS: Hematocrit 43.6 % (42.0-52.0); Hemoglobin 14.1 g/dL (14.0-18.0); Immature Platelet Fraction Pct 11.6 % (0.9-11.2); Mean Corpuscular HGB Conc 32.3 g/dl (32-36); Mean Corpuscular Hemoglobin 30.3 pg (26-34); Mean Corpuscular Volume 93.6 fl (80-100); Mean Platelet Volume 10.9 fl (7.4-10.4); Platelet Count Result 155 k/mm3 (150-375); Red Blood Count 4.66 M/mm3 (4.6-6.20); Red Cell Distribution Width 13.6 % (11.5-14.5); White Blood Count 6.8 K/mm3 (4.5-10.0)
[2023-03-01 07:56] LABS: Alanine Aminotransferase 41 U/L (6-50); Albumin Level 4.3 g/dL (3.5-5.1); Alkaline Phosphatase 92 U/L (38-126); Anion Gap 3 mmol/L (8-16); Aspartate Amino Transferase 26 U/L (17-59); Bilirubin,Total 0.6 mg/dL (0.2-1.3); Blood Urea Nitrogen 17 mg/dL (9-20); Calcium 9.1 mg/dL (8.4-10.2); Carbon Dioxide 36 mmol/L (22-30); Chloride 98 mmol/L (98-107); Cholesterol 139 mg/dL (0-200); Estimated Glomerular Filt Rate > 60; Glucose 213 mg/dL (65-110); HDL Direct 48 mg/dL; Potassium 3.9 mmol/L (3.4-5.0); Sodium 137 mmol/L (137-145); Triglycerides 82 mg/dL (<150)
[2023-03-01 08:07] LABS: LDL Cholesterol Direct 66 mg/dL
[2023-03-01 08:19] LABS: MALB Creatinine Ratio 28.6 mg/g (0-30); Microalbumin Urine Random 51.2 mg/L (0-16.7)
[2023-03-01 09:18] LABS: Hemoglobin A1C 10.4 % (<5.7)
[2023-03-01 09:27] LABS: Prostate Specific Antigen 1.9 ng/mL (< OR = 4.0)
[2023-03-05 11:10] LABS: Testosterone Total 214 ng/dL (250-1100)
== END 2023-03-01 06:37 | disposition home or self-care (01) ==
LOC: ANHLAB 06:38
PROVIDERS: PCP Family Medicine Adolescent Medicine; Visit Provider Family Medicine Adolescent Medicine
DX: Z12.5 Encounter for screening for malignant neoplasm of prostate (principal); R53.83 Other fatigue; E78.00 Pure hypercholesterolemia, unspecified; E11.9 Type 2 diabetes mellitus without complications; I10 Essential (primary) hypertension
CPT/HCPCS: 36415; 80053; 80061; 82043; 83036; 84153; 84403; 84443; 85027; 85055; G0103

== ENCOUNTER 2023-03-07 06:34 | Outpatient (CLI) | payer OTHER, SELFPAY ==
[2023-03-11 14:53] LABS: Testosterone Free 27.5 pg/mL (35.0-155.0); Testosterone Total 153 ng/dL (250-1100)
== END 2023-03-07 06:35 | disposition home or self-care (01) ==
PROVIDERS: PCP Family Medicine Adolescent Medicine; Visit Provider Family Medicine Adolescent Medicine
DX: E29.1 Testicular hypofunction (principal)
CPT/HCPCS: 36415; 84402; 84403

== ENCOUNTER 2023-07-03 14:54 | Outpatient (CLI) | payer OTHER, SELFPAY ==
[2023-07-03 15:45] LABS: Anion Gap 8 mmol/L (8-16); Blood Urea Nitrogen 25 mg/dL (9-20); Calcium 9.1 mg/dL (8.4-10.2); Carbon Dioxide 25 mmol/L (22-30); Chloride 105 mmol/L (98-107); Estimated Glomerular Filt Rate > 60; Glucose 105 mg/dL (65-110); Potassium 4.1 mmol/L (3.4-5.0); Sodium 138 mmol/L (137-145)
[2023-07-04 00:08] LABS: Hemoglobin A1C 7.5 % (<5.7)
[2023-07-06 09:50] LABS: Testosterone Total 484 ng/dL (250-1100)
== END 2023-07-03 14:55 | disposition home or self-care (01) ==
LOC: ANHLAB 14:56
PROVIDERS: PCP Family Medicine Adolescent Medicine; Visit Provider Family Medicine Adolescent Medicine
DX: E11.9 Type 2 diabetes mellitus without complications (principal); I10 Essential (primary) hypertension; E78.00 Pure hypercholesterolemia, unspecified; R53.83 Other fatigue; Z12.5 Encounter for screening for malignant neoplasm of prostate
CPT/HCPCS: 36415; 80048; 83036; 84403

== ENCOUNTER 2023-12-14 10:52 | Outpatient (CLI) | payer OTHER, SELFPAY ==
--- NOTE | ~2023-12-14 | XR_ITS ---
Clinical Indication: Chest pain PA and lateral views of the chest: Comparison: 12/15/2021 Findings: The lungs are clear, without evidence of focal consolidation or pleural effusion. Cardiome diastinal silhouette is within normal limits. Bones and soft tissues are unremarkable. Impression: Normal chest. Reviewed, dictated and finalized at location . [facility] Impression: Normal chest.
== END 2023-12-14 10:53 | disposition home or self-care (01) ==
LOC: ANHIMG 10:54
PROVIDERS: PCP Family Medicine Adolescent Medicine; Visit Provider Family Medicine Adolescent Medicine
DX: R07.9 Chest pain, unspecified (principal)
CPT/HCPCS: 71046

== ENCOUNTER 2024-01-23 14:52 | Outpatient (CLI) | payer OTHER, SELFPAY ==
--- NOTE | ~2024-01-23 | CT_ITS ---
Non-contrast CT scan of the Abdomen Clinical indication: Left upper quadrant pain Technique: 2.5 mm axial scans were obtained through the abdomen without intravenous or oral contrast . Dose reduction technique was used on this scan by utilizing automated exposure control and iterativ e reconstruction technique. The dose-length product (DLP) was 888.55 mGy-cm. COMPARISON: 06/17/2021 Findings: Images through the lung bases reveal no abnormalities. There is no evidence of renal or ureteral calculi. The kidneys and the ureters are nondilated. The liver, spleen, pancreas, gallbladder, and adrenals appear normal. There is no aortic aneurysm. Visualized bowel loops are unremarkable. No ascites. Impression: No significant abnormality seen. Reviewed, dictated and finalized at [facility]. JELLY Impression: No significant abnormality seen.
== END 2024-01-23 14:53 | disposition home or self-care (01) ==
LOC: ANHIMG 14:52
PROVIDERS: PCP Family Medicine Adolescent Medicine; Visit Provider Family Medicine Adolescent Medicine
DX: R07.9 Chest pain, unspecified (principal); R10.12 Left upper quadrant pain
CPT/HCPCS: 74150

== ENCOUNTER 2024-02-21 07:38 | Outpatient (CLI) | payer OTHER, SELFPAY ==
[2024-02-21 09:01] LABS: Alanine Aminotransferase 31 U/L (6-50); Alkaline Phosphatase 74 U/L (38-126); Anion Gap 2 mmol/L (4-12); Aspartate Amino Transferase 30 U/L (17-59); Bilirubin,Total 0.9 mg/dL (0.2-1.3); Blood Urea Nitrogen 14 mg/dL (9-20); Calcium 8.9 mg/dL (8.4-10.2); Carbon Dioxide 34 mmol/L (22-30); Chloride 102 mmol/L (98-107); Cholesterol 132 mg/dL (0-200); Estimated Glomerular Filt Rate > 60; Glucose 126 mg/dL (65-110); HDL Direct 53 mg/dL; Potassium 4.1 mmol/L (3.4-5.0); Sodium 138 mmol/L (137-145); Triglycerides 50 mg/dL (<150)
[2024-02-21 09:12] LABS: LDL Cholesterol Direct 69 mg/dL
[2024-02-22 00:38] LABS: Prostate Specific Antigen 1.7 ng/mL (< OR = 4.0)
[2024-02-22 00:48] LABS: Hemoglobin A1C 6.9 % (<5.7)
== END 2024-02-21 07:39 | disposition home or self-care (01) ==
PROVIDERS: PCP Family Medicine Adolescent Medicine; Visit Provider Family Medicine Adolescent Medicine
DX: Z12.5 Encounter for screening for malignant neoplasm of prostate (principal); E11.65 Type 2 diabetes mellitus with hyperglycemia; E78.00 Pure hypercholesterolemia, unspecified; I10 Essential (primary) hypertension
CPT/HCPCS: 36415; 80053; 80061; 83036; 84153; G0103

== ENCOUNTER 2024-03-23 07:33 | Outpatient (CLI) | payer OTHER, SELFPAY ==
[2024-03-23 08:03] LABS: Hematocrit 51.9 % (42.0-52.0); Hemoglobin 16.2 g/dL (14.0-18.0); Mean Corpuscular HGB Conc 31.2 g/dl (32-36); Mean Corpuscular Hemoglobin 30.2 pg (26-34); Mean Corpuscular Volume 96.8 fl (80-100); Mean Platelet Volume 10.5 fl (7.4-10.4); Platelet Count Result 153 k/mm3 (150-375); Red Blood Count 5.36 M/mm3 (4.6-6.20); Red Cell Distribution Width 13.5 % (11.5-14.5); White Blood Count 5.5 K/mm3 (4.5-10.0)
[2024-03-26 10:12] LABS: Testosterone Total 203 ng/dL (250-1100)
== END 2024-03-23 07:34 | disposition home or self-care (01) ==
LOC: ANHLAB 07:34
PROVIDERS: PCP Family Medicine Adolescent Medicine; Visit Provider Family Medicine Adolescent Medicine
DX: E29.1 Testicular hypofunction (principal); R53.83 Other fatigue
CPT/HCPCS: 36415; 84403; 84443; 85027

== ENCOUNTER 2024-07-29 06:43 | Outpatient (CLI) | payer OTHER, SELFPAY ==
[2024-07-29 08:03] LABS: Alanine Aminotransferase 75 U/L (6-50); Alkaline Phosphatase 92 U/L (38-126); Anion Gap 8 mmol/L (4-12); Aspartate Amino Transferase 44 U/L (17-59); Bilirubin,Total 0.8 mg/dL (0.2-1.3); Blood Urea Nitrogen 18 mg/dL (9-20); Calcium 8.8 mg/dL (8.4-10.2); Carbon Dioxide 28 mmol/L (22-30); Chloride 100 mmol/L (98-107); Cholesterol 120 mg/dL (0-200); Estimated Glomerular Filt Rate > 60; Glucose 135 mg/dL (65-110); HDL Direct 61 mg/dL; Sodium 136 mmol/L (137-145); Triglycerides 52 mg/dL (<150)
[2024-07-29 08:15] LABS: LDL Cholesterol Direct 43 mg/dL
[2024-07-29 08:25] LABS: Prostate Specific Antigen 1.1 ng/mL (< OR = 4.0)
[2024-07-29 09:47] LABS: Hemoglobin A1C 6.3 % (<5.7)
[2024-08-01 22:45] LABS: Testosterone Total 505 ng/dL (250-1100)
== END 2024-07-29 06:44 | disposition home or self-care (01) ==
LOC: ANHLAB 06:46
PROVIDERS: PCP Family Medicine Adolescent Medicine; Visit Provider Family Medicine Adolescent Medicine
DX: Z12.5 Encounter for screening for malignant neoplasm of prostate (principal); E11.65 Type 2 diabetes mellitus with hyperglycemia; E29.1 Testicular hypofunction; I10 Essential (primary) hypertension
CPT/HCPCS: 36415; 80053; 80061; 83036; 84153; 84403; G0103

== ENCOUNTER 2024-11-23 09:11 | Outpatient (CLI) | payer OTHER, SELFPAY ==
--- NOTE | ~2024-11-23 | MR_ITS ---
MRI of the lumbar spine Clinical History: Left foot drop Technique: Axial T2-weighted images, and sagittal T1-weighted, T2-weighted, and T2 fat-sat images wer e acquired. Findings: There is no fracture or subluxation of the lumbar spine. Vertebral bodies maintain normal h eight. No bone marrow signal abnormality seen. At L1-L2, there is right paracentral disc protrusion. There is mild facet arthropathy. No jena centr al canal stenosis. There is mild to moderate bilateral neural foraminal narrowing. At L2-L3, there is mild diffuse disc bulge with mild facet arthropathy. No jena central canal stenos is. Probable minimal bilateral neural foraminal narrowing. L3-L4, there is minimal disc bulge with mild to moderate facet arthropathy. No central canal stenosis . There is moderate bilateral neural foraminal narrowing, left worse than right. At L4-L5, there is mild disc bulge with moderate to advanced facet arthropathy. No central canal sten osis. There is moderate bilateral neural foraminal narrowing, right worse than left. At L5-S1, there is minimal disc bulge with advanced facet arthropathy. No central canal stenosis. The re is moderate to severe bilateral neural foraminal narrowing. Paravertebral soft tissues are unremarkable. Impression: Moderate to advanced degenerative spondylosis, as above, with multilevel neural foraminal narrowing. Right paracentral disc protrusion at L1-L2. Reviewed, dictated and finalized at [facility]. NER SPRAYER Impression: Moderate to advanced degenerative spondylosis, as above, with multilevel neural foraminal narrowing. Right paracentral disc protrusion at L1-L2.
== END 2024-11-23 09:12 | disposition home or self-care (01) ==
LOC: ANHIMG 09:15
PROVIDERS: PCP Family Medicine Adolescent Medicine; Visit Provider Family Medicine Adolescent Medicine
DX: M21.372 Foot drop, left foot (principal); M47.896 Other spondylosis, lumbar region; M51.26 Other intervertebral disc displacement, lumbar region
CPT/HCPCS: 72148

== ENCOUNTER 2024-12-02 07:28 | Outpatient (CLI) | payer OTHER, SELFPAY | END 2024-12-02 07:29 | disposition home or self-care (01) | LOC: ANHLAB 07:29 | PROVIDERS: PCP Family Medicine Adolescent Medicine; Visit Provider Family Medicine Adolescent Medicine | DX: I10 Essential (primary) hypertension (principal) | CPT/HCPCS: 36415; 82088; 84244 ==

== ENCOUNTER 2025-01-01 08:17 | Outpatient (CLI) | payer OTHER, SELFPAY ==
--- NOTE | ~2025-01-01 | CT_ITS ---
EXAMINATION: CT abdomen wo con DATE: 01/01/2025 08:40 INDICATION: Assess for adrenal lesion TECHNIQUE: Computed tomography (CT) of the abdomen was performed without intravenous contrast. Automa blanquita exposure control and iterative reconstruction technique were employed. The dose-length product wa s 628.49 mGy-cm. COMPARISON: CT dated 01/23/2024 FINDINGS: Lung bases are clear. Heart size is normal. No pericardial or pleural effusion. Liver, decompressed g allbladder, spleen, pancreas, bilateral adrenal glands and kidneys are normal. There is diverticulosi s along the visualized transverse and descending colon without adjacent from trace stranding to sugge st diverticulitis. No bowel obstruction. Small fat-containing umbilical hernia. No pathologically enl arged abdominal lymphadenopathy. Mild lumbar and mild to moderate lower thoracic spondylosis. IMPRESSION: 1. Mild colonic diverticulosis. 2. Small fat-containing umbilical hernia. 3. Normal appearing bilateral adrenal glands. Reviewed, dictated and finalized at location A. ALLATION COORDINATOR
--- OUTSIDE RECORDS SUMMARY | 2025-01-01 08:47 | XMS_ITS | Continuity of Care Document ---
Author Organization [facility] Address [address] [place] [address] Phone Care Team Providers Care Microbiological Analyst Name Role Phone Conversion MD, Doctor Unavailable Unavailabl e Allergies, Adverse Reactions, Alerts Substance Reaction Status Criticality No Known Drug Allergies Other Active No I nformation Advance Directives Directive Yes / No Effective Date File Name No Information Encounters Encounter Description Practice Location Reason(s) For Visit Diagnoses Date Provider Providers Copied on Encounter [email or web address] [facility], [address], [place], [place], [address], tel:[phone] [place] No Information Conversion Doctor. [address], [place], [address], . [facility], [address], [place], [place], [address], tel:[phone] [facility] Adrienne Hankins. [address] [place], [place], [id number], . tel:[phone] [facility], [address], [place], [place], [address], tel:[phone] [place] LONG-TERM USE MEDS NECROUTINE MEDICAL EXAMSCRN MALIG NEOP-PROSTATEH EMATURIA Adrienne Hankins. [address] [place], [place], [address], . tel:[phone] Family History Family Member Type Diagnosis Age At Onset No Information Payers Payer name Insurance type Covered libertarian ID Authoriza tion(s) No Information Social History Type Description Quantity Date Captured Comments Sex Male Smoking Status No Information Chief Complaint And Reason For Visit No Information Reason For Referral Reason For Referral No Information History Of Present Illness Encounter Date Complaint History Of Prese nt Illness No Information Functional Status Date Functional Assessmen t No Information Instructions Date Instruction Additional Infor mation No Information Assessments Type Assessment Date No Information Patient Care Teams Name Effective Dates (start - stop) Status Members No Information
== END 2025-01-01 08:18 | disposition home or self-care (01) ==
LOC: ANHIMG 08:20
PROVIDERS: PCP Family Medicine Adolescent Medicine; Visit Provider Family Medicine Adolescent Medicine
DX: K57.30 Diverticulosis of large intestine without perforation or abscess without bleeding (principal); K42.9 Umbilical hernia without obstruction or gangrene; E26.9 Hyperaldosteronism, unspecified
CPT/HCPCS: 74150

== ENCOUNTER 2025-01-22 13:00 | Outpatient (CLI) | payer OTHER, SELFPAY ==
--- NOTE | 2025-01-22 13:30 | NEURO_ITS ---
Impression: # Complains of left lower extremity weakness and drop foot. Known diabetic. ? # No responses could be obtained from left peroneal or posterior tibial motor ?nerves or the superficial peroneal and sural sensory nerves. ? # Needle/EMG exam neurogenic in left lower extremity muscles including Quads. ? # Clinical correlation recommended. Suggestive of Plexopathy. ? MRI if not done is suggested. ?Nerve Conduction Studies Anti Sensory Summary Table ?Stim Site NR Peak (ms) P-T Amp (?V) Site1 Site2 Delta-P (ms) Dist (cm) Naveed (m/s) Left Sup Fibular Anti Sensory (Ant Lat Mall)??? NO RESPONSE 14 cm NR 14 cm Ant Lat Mall 16.0 Left Sural Anti Sensory (Lat Mall)??? NO RESPONSE Calf NR Calf Lat Mall 16.0 Motor Summary Table ?Stim Site NR Onset (ms) O-P Amp (mV) Site1 Site2 Delta-0 (ms) Dist (cm) Naveed (m/s) Left Peroneal Motor (Vastus Med)??? NO RESPONSE Ankle NR Popit Ankle 0.0 Popit NR B Fib Ankle 0.0 B Fib NR Left Tibial Motor (Abd De Leon Brev)??? NO RESPONSE Ankle NR Knee Ankle 0.0 Knee NR F Wave Studies ?NR F-Lat (ms) L-R F-Lat (ms) Left Peroneal (Mrkrs) (EDB)??? NO RESPONSE ? 40.00 Left Tibial (Mrkrs) (Abd Hallucis)??? NO RESPONSE NR EMG ?Side Muscle Nerve Root Ins Act Fibs Amp Dur Recrt Comment Left AntTibialis Dp Br Fibular L4-5 Nml 1+ Decr >12ms +1 Left Gastroc Tibial S1-2 Nml 1+ Decr >12ms +1 Left Fibularis Long Sup Br Fibular L5-S1 Nml 1+ Nml Nml +1 Left Flex Dig Long Tibial L5-S2 Nml 1+ Nml Nml +1 Left Ext Dig Brev Dp Br Fibular L5, S1 Nml 1+ Nml Nml +1 Left QuadratusFem QuadFemoris L4-5, S1 Nml 1+ Decr >12ms +1 MTDD
--- OUTSIDE RECORDS SUMMARY | 2025-01-22 14:21 | XMS_ITS | Continuity of Care Document ---
Author Organization [facility] Address [address] [place] [address] Phone Care Team Providers Care Sales Planner Name Role Phone Conversion MD, Doctor Unavailable Unavailabl e Allergies, Adverse Reactions, Alerts Substance Reaction Status Criticality No Known Drug Allergies Other Active No I nformation Advance Directives Directive Yes / No Effective Date File Name No Information Encounters Encounter Description Practice Location Reason(s) For Visit Diagnoses Date Provider Providers Copied on Encounter [facility], [address], [place], [place], [address], tel:[phone] [place] No Information Conversion Doctor. [address], [place], [address], . [facility], [address], [place], [place], [address], tel:[phone] [facility] Adrienne Hankins. [address] [place], [place], [id number], . tel:[phone] [facility], [address], [place], [place], [address], tel:[phone] [place] LONG-TERM USE MEDS NECROUTINE MEDICAL EXAMSCRN MALIG NEOP-PROSTATEH EMATURIA Adrienne Hankins. [address] [place], [place], [address], . tel:[phone] Family History Family Member Type Diagnosis Age [...]
== END 2025-01-22 13:01 | disposition home or self-care (01) ==
LOC: ANHNEURO 13:02
PROVIDERS: PCP Family Medicine Adolescent Medicine; Visit Provider Family Medicine Adolescent Medicine
DX: M21.372 Foot drop, left foot (principal); R20.2 Paresthesia of skin
CPT/HCPCS: 95886; 95908

== ENCOUNTER 2025-03-11 16:05 | Outpatient (CLI) | payer OTHER, SELFPAY ==
--- NOTE | ~2025-03-11 | US_ITS ---
EXAM: RENAL DOPPLER ULTRASOUND HISTORY: difficult to control blood pressure COMPARISON: None FINDINGS: Peak systolic velocity (PSV) in cm/sec; Resistive Index (RI) Abdominal Aorta: 76; 0.81 Proximal Right renal artery: 79; 0.68 Mid Right renal artery: 45; 0.69 Distal Right renal artery: 35; 0.66 RIGHT Renal artery; Aortic Ratio (RAR): 1.04 (normal is less than 3.5) Proximal Left renal artery: 118; 0.82 Mid Left renal artery: 58; 0.79 Distal Left renal artery: 32; 0.74 LEFT Renal artery; Aortic Ratio (RAR): 1.55 (normal is less than 3.5) IMPRESSION: Unremarkable Doppler evaluation of the bilateral renal arteries, as detailed above. Reviewed, dictated and finalized at location A. IMPRESSION: Unremarkable Doppler evaluation of the bilateral renal arteries, as detailed ab ove.
--- OUTSIDE RECORDS SUMMARY | 2025-03-11 18:01 | XMS_ITS | Continuity of Care Document ---
Author Organization [facility] Address [address] [place] [address] Phone Care Team Providers Care Release Specialist Name Role Phone Conversion MD, Doctor Unavailable Unavailabl e Allergies, Adverse Reactions, Alerts Substance Reaction Status Criticality No Known Drug Allergies Other Active No I nformation Advance Directives Directive Yes / No Effective Date File Name No Information Encounters Encounter Description Practice Location Reason(s) For Visit Diagnoses Date Provider Providers Copied on Encounter [employer] [facility], [address], [place], [place], [address], tel:[phone] [place] No Information Conversion Doctor. [address], [place], [address], . [facility], [address], [place], [place], [address], tel:[phone] [place] [facility] Adrienne Hankins. [address] [place], [place], [address], . tel:[phone] [facility], [address], [place], [place], [address], tel:[phone] [place] LONG-TERM USE MEDS NECROUTINE MEDICAL EXAMSCRN MALIG NEOP-PROSTATEH EMATURIA Adrienne Hankins. [address] [place], [place], [address], . tel:[phone] Family History Family Member Type Diagnosis Age At Onset No Information Payers Payer name Insurance type Covered republican ID Authoriza tion(s) No Information Social History [...]
== END 2025-03-11 16:06 | disposition home or self-care (01) ==
LOC: ANHIMG 16:06
PROVIDERS: Visit Provider Internal Medicine Nephrology
DX: I10 Essential (primary) hypertension (principal)
CPT/HCPCS: 93976

== ENCOUNTER 2025-04-28 14:40 | Outpatient (CLI) | payer OTHER, SELFPAY ==
[2025-04-28 15:45] LABS: Creatinine Urine 212.8 mg/dL; Total Protein Urine Random 8 mg/dL; Ur Ttl Prot Creatinine Ratio 0.04 mg/mg (0-0.20)
--- OUTSIDE RECORDS SUMMARY | 2025-04-28 15:50 | XMS_ITS | Continuity of Care Document ---
Author Organization [facility] Address [address] [place] [address] Phone Care Team Providers Care Regional Service Manager Name Role Phone Conversion MD, Doctor Unavailable Unavailabl e Allergies, Adverse Reactions, Alerts Substance Reaction Status Criticality No Known Drug Allergies Other Active No I nformation Advance Directives Directive Yes / No Effective Date File Name No Information Encounters Encounter Description Practice Location Reason(s) For Visit Diagnoses Date Provider Providers Copied on Encounter [facility], [address], [place], [place], [address], tel:[phone] [place] No Information Conversion Doctor. [address], [place], [address], . [facility], [address], [place], [place], [address], tel:[phone] [facility] Adrienne Hankins. [address] [place], [place], [id number], . tel:[phone] [facility], [address], [place], [place], [address], tel:[phone] [place] LONG-TERM USE MEDS NECROUTINE MEDICAL EXAMSCRN MALIG NEOP-PROSTATEH EMATURIA Adrienne Hankins. [address] [place], [place], [address], . tel:[phone] Family History Family Member Type Diagnosis Age [...]
[2025-04-28 15:59] LABS: Anion Gap 6 mmol/L (4-12); Blood Urea Nitrogen 13 mg/dL (9-20); Calcium 9.4 mg/dL (8.4-10.2); Carbon Dioxide 30 mmol/L (22-30); Chloride 103 mmol/L (98-107); Estimated Glomerular Filt Rate > 60; Glucose 150 mg/dL (65-110); Phosphorus 3.5 mg/dL (2.5-4.5); Potassium 4.1 mmol/L (3.4-5.0); Sodium 139 mmol/L (137-145)
[2025-04-28 17:50] LABS: Vitamin B12 > 1000.0 pg/mL (239-931)
[2025-04-30 11:54] LABS: Homocysteine 10.6 umol/L (< or = 15.2)
[2025-04-30 12:14] LABS: Red Blood Cell Folate 504 ng/mL RBC (>280)
[2025-05-01 20:48] LABS: Methylmalonic Acid 136 nmol/L (69-390)
[2025-05-01 22:49] LABS: Immunofixation, Serum Normal pattern.
[2025-05-02 09:29] LABS: Vitamin B6 10.8 ng/mL (2.1-21.7)
[2025-05-02 12:38] LABS: Vitamin B1 12 nmol/L (8-30)
[2025-05-02 15:08] LABS: Vitamin D 1,25 (OH)2 Total 50 pg/mL (18-72); Vitamin D2 1,25 (OH)2 <8 pg/mL; Vitamin D3 1,25 (OH)2 50 pg/mL
== END 2025-04-28 14:41 | disposition home or self-care (01) ==
LOC: ANHLAB 14:42
PROVIDERS: PCP Family Medicine Adolescent Medicine; Referring Provider Psychiatry & Neurology Neurology; Visit Provider Internal Medicine Nephrology
DX: M21.372 Foot drop, left foot (principal); I10 Essential (primary) hypertension; E11.9 Type 2 diabetes mellitus without complications; E55.9 Vitamin D deficiency, unspecified; G62.9 Polyneuropathy, unspecified
CPT/HCPCS: 36415; 80069; 82570; 82607; 82652; 82747; 83090; 83921; 84156; 84207; 84425; 86334

== ENCOUNTER 2025-11-03 07:05 | Outpatient (CLI) | payer OTHER, SELFPAY ==
[2025-11-03 07:38] LABS: Hemoglobin A1C 8.2 % (<5.7)
[2025-11-03 07:52] LABS: Alanine Aminotransferase 48 U/L (6-50); Albumin Level 4.2 g/dL (3.5-5.1); Alkaline Phosphatase 83 U/L (38-126); Anion Gap 5 mmol/L (4-12); Aspartate Amino Transferase 34 U/L (17-59); Bilirubin,Total 0.6 mg/dL (0.2-1.3); Blood Urea Nitrogen 17 mg/dL (9-20); Calcium 8.8 mg/dL (8.4-10.2); Carbon Dioxide 27 mmol/L (22-30); Chloride 104 mmol/L (98-107); Cholesterol 161 mg/dL (0-200); Estimated Glomerular Filt Rate > 60; Glucose 161 mg/dL (65-110); HDL Direct 72 mg/dL; Potassium 4.3 mmol/L (3.4-5.0); Sodium 136 mmol/L (137-145); Total Protein 7.3 g/dL (6.3-8.2); Triglycerides 64 mg/dL (<150)
[2025-11-03 08:27] LABS: Prostate Specific Antigen 1.4 ng/mL (< OR = 4.0)
[2025-11-08 19:08] LABS: Testosterone, Total, LC/MS 421 ng/dL (.)
== END 2025-11-03 07:06 | disposition home or self-care (01) ==
LOC: ANHLAB 07:06
PROVIDERS: PCP Family Medicine Adolescent Medicine; Visit Provider Family Medicine Adolescent Medicine
DX: Z12.5 Encounter for screening for malignant neoplasm of prostate (principal); I10 Essential (primary) hypertension; E11.9 Type 2 diabetes mellitus without complications; E29.1 Testicular hypofunction; E26.9 Hyperaldosteronism, unspecified
CPT/HCPCS: 36415; 80053; 80061; 83036; 84153; 84403; G0103